=== PATIENT | female | born 1985 | race Caucasian/White ===

== ENCOUNTER 2018-02-21 16:08 | Emergency (ER) | payer OTHER ==
[~2018-02-21] VITALS: Ht 157.5 cm; Wt 102.5 kg
[~2018-02-21 16:08] MED LIST: IBUPROFEN800 M1 PO
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
[2018-02-21 17:22] VITALS: BP 166/74
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
== END 2018-02-21 18:19 ==
LOC: ERH 16:08
DX: O26.92 Pregnancy related conditions, unspecified, second trimester (principal); Z04.1 Encounter for examination and observation following transport accident; Z3A.20 20 weeks gestation of pregnancy; V49.40XA Driver injured in collision with unspecified motor vehicles in traffic accident, initial encounter; Y92.9 Unspecified place or not applicable

== ENCOUNTER 2018-05-24 14:53 | Observation (INO) | payer OTHER ==
[~2018-05-24] VITALS: Ht 157.5 cm; Wt 108.0 kg
== END 2018-05-25 10:45 ==
LOC: CBCO 14:53 → GNO 18:58
DX: O47.9 False labor, unspecified (principal); Z3A.00 Weeks of gestation of pregnancy not specified
CPT/HCPCS: 96360; 96361; 96372; G0378; G0463; J1815; J3105; J7120